=== PATIENT | male | born 1995 | race Caucasian/White ===

== ENCOUNTER 2017-12-28 18:12 | Emergency (ER) | payer BC ==
[~2017-12-28] VITALS: Ht 167.6 cm; Wt 86.2 kg
[~2017-12-28 18:12] MED LIST: ADDERALL 30 MG30 MG PO
[2017-12-28] MEDS ORDERED: ANTIBIOTIC28.4 GM TOP (18:40)
[2017-12-28 19:15] VITALS: BP 120/70
== END 2017-12-28 19:15 | disposition home or self-care (01) ==
LOC: M.ERS 18:12
DX: T24.201A Burn of second degree of unspecified site of right lower limb, except ankle and foot, initial encounter (principal); T31.0 Burns involving less than 10% of body surface; X08.8XXA Exposure to other specified smoke, fire and flames, initial encounter; Y93.89 Activity, other specified; Y92.89 Other specified places as the place of occurrence of the external cause; Y99.8 Other external cause status